=== PATIENT | male | born 1990 | race Two or more races ===

== ENCOUNTER 2020-07-02 02:38 | Emergency (ER) | payer SELFPAY ==
[~2020-07-02] VITALS: Ht 167.6 cm; Wt 70.0 kg
--- NOTE | 2020-07-02 02:43 | NUR ---
Patient BIB ambulance c/o diff breathing. Per EMS, on scene, patient was having an asthma attack. They admin Albuterol and Duoneb along with Solumedrol. Patient states his condition improved and he is "feeling much better." Patient admits to marijuana use which he uses daily and one beer. Denies other drug use. Patient is shaking intermittently and states he is cold; in NAD. Respirations even and unlabored.
[2020-07-02 03:30] LABS: BASOPHILS % (AUTO) 1 % (0-1); EOSINOPHILS % (AUTO) 6 % (1-7); LYMPHOCYTES % (AUTO) 20 % (22-44); MEAN CORPUSCULAR HEMOGLOBIN 28.3 pg (27.5-34.5); MEAN CORPUSCULAR HGB CONC 33.2 g/dL (33.2-36.2); MEAN PLATELET VOLUME 8.5 fL (7.4-10.4); MONOCYTES % (AUTO) 5 % (2-9); NEUTROPHILS % (AUTO) 69 % (42-75); PLATELET COUNT 245 x10^3/uL (130-400); RED BLOOD COUNT 5.61 x10^6/uL (4.38-5.82); RED CELL DISTRIBUTION WIDTH 13.2 % (9.4-14.8)
[2020-07-02 03:41] LABS: ALBUMIN 4.3 g/dL (3.4-5.0); ANION GAP 4 mmol/L (5-15); CHLORIDE 109 mmol/L (98-107); CREATININE 0.92 mg/dL (0.7-1.3)
[2020-07-02 03:44] LABS: TROPONIN I < 0.015 ng/mL (0.000-0.045)
[2020-07-02 03:56] LABS: MD NO
--- NOTE | 2020-07-02 04:01 | NUR ---
REPORT FROM LANDEN CHRISTIANSON. CARE OF ASSUMED OF THIS PT. PT FEELING BETTER, ANTICIPATED DISPO.
[2020-07-02 04:13] VITALS: BP 135/82
--- NOTE | 2020-07-02 04:14 | NUR ---
PT GIVEN DC INSTRUCT, RX PT STATES HE VERBALIZES UNDERSTANDING OF INSTRUCT. PT STATES HE FEELS BETTER, VSS. VERBALIZES UNDERSTANDING TO RETURN TO ER IF WORSE OR CONERNS.
== END 2020-07-02 04:30 | disposition home or self-care (01) ==
LOC: ED 03:50
DX: J45.41 Moderate persistent asthma with (acute) exacerbation (principal)
CPT/HCPCS: 36415; 71045; 80048; 82040; 84484; 85025; 93005; 99285